=== PATIENT | female | born 1995 | race African-American/Black ===

== ENCOUNTER 2017-10-05 17:36 | Emergency (ER) | payer MEDICAID ==
[2017-10-05 17:42] VITALS: BP 114/71
[2017-10-05 18:52] LABS: Bilirubin,Urine NEG (Negative); Blood,Urine SM (Negative); Color,Urine Yellow (Yellow); Mucus,Urine FEW /HPF; Protein,Urine <15 mg/dL mg/dL (Negative); Urobilinogen,Urine < 2.0 mg/dL (<2.0)
--- NOTE | 2017-10-05 19:08 | Emergency Department Report ---
ED Female HPI - General Chief complaint: Vaginal Bleeding Stated complaint: /NO HEART BEAT Time Seen by Provider: 10/05/17 18:59 Source: patient Mode of arrival: Ambulatory Limitations: No Limitations - History of Present Illness Initial comments: 22F past medical history none currently last menstrual period July 2017 presents with complaint of active vaginal spotting since Monday. Patient denies fevers chills nausea or vomiting. States she went to an [facility] called [facility] and had ultrasound which showed no heartbeat. Patient was advised to follow up with [facility]. Patient presents to the ED for complaint of crampy pain and bleeding. Denies any severe pain. Denies dysuria or increased urinary frequency. MD Complaint: vaginal bleeding Onset/Timin -: days(s) Radiation: suprapubic Severity: moderate Quality: cramping Consistency: intermittent Improves with: none Worsens with: none Are you Now?: Yes Last Menstrual Period: 08/29/17 EDC: 06/05/18 Associated Symptoms: vaginal bleeding, abdominal pain - Related Data Sexually active: Yes : 4 Para: 3 Home Medications Medication Instructions Recorded Confirmed Last Taken Pnv95/Ferrous Fumarate/FA 1 each PO QDAY 06/14/13 08/29/13 08/28/13 07:00 [ Vitamins] Previous Rx's Medication Instructions Recorded Last Taken Type metroNIDAZOLE [Metronidazole] 500 mg PO BID #14 tablet 10/05/17 Unknown Rx Allergies Allergy/AdvReac Type Severity Reaction Status Date / Time No Known Allergies Allergy Verified 06/14/13 10:51 ED Review of Systems ROS: Stated complaint: /NO HEART BEAT Other details as noted in HPI Constitutional: denies: chills, fever Eyes: denies: eye pain, eye discharge, vision change ENT: denies: ear pain, throat pain Respiratory: denies: cough, shortness of breath, wheezing Cardiovascular: denies: chest pain, palpitations Endocrine: no symptoms reported Gastrointestinal: abdominal pain. denies: nausea, diarrhea Genitourinary: as per HPI, abnormal menses. denies: urgency, dysuria, discharge Musculoskeletal: denies: back pain, joint swelling, arthralgia Skin: denies: rash, lesions Neurological: denies: headache, weakness, paresthesias Psychiatric: denies: anxiety, depression Hematological/Lymphatic: denies: easy bleeding, easy bruising ED Past Medical Hx - Past Medical History Previous Medical History?: No Hx Hypertension: No Hx Heart Attack/AMI: No Hx Congestive Heart Failure: No Hx Diabetes: No Hx Deep Vein Thrombosis: No Hx Pulmonary Embolism: No Hx Liver Disease: No Hx Renal Disease: No Hx Sickle Cell Disease: No Hx Headaches / Migraines: No Hx Seizures: No Hx Asthma: No Hx COPD: No Hx Tuberculosis: No Hx HIV: No - Surgical History Past Surgical History?: Yes Additional Surgical History: x 1 - Social History Smoking Status: Never Smoker Substance Use Type: None - Medications Home Medications: Home Medications Medication Instructions Recorded Confirmed Last Taken Type Pnv95/Ferrous Fumarate/FA 1 each PO QDAY 06/14/13 08/29/13 08/28/13 07:00 History [ Vitamins] metroNIDAZOLE [Metronidazole] 500 mg PO BID #14 tablet 10/05/17 Unknown Rx ED Physical Exam - General Limitations: No Limitations General appearance: alert, in no apparent distress - Head Head exam: Present: atraumatic, normocephalic - Eye Eye exam: Present: normal appearance, PERRL, EOMI - ENT ENT exam: Present: mucous membranes moist - Neck Neck exam: Present: normal inspection - Respiratory Respiratory exam: Present: normal lung sounds bilaterally. Absent: respiratory distress - Cardiovascular Cardiovascular Exam: Present: regular rate, normal rhythm. Absent: systolic murmur, diastolic murmur, rubs, gallop - GI/Abdominal GI/Abdominal exam: Present: soft, normal bowel sounds - Extremities Exam Extremities exam: Present: normal inspection - Back Exam Back exam: Present: normal inspection - Neurological Exam Neurological exam: Present: alert, oriented X3 - Psychiatric Psychiatric exam: Present: normal affect, normal mood - Skin Skin exam: Present: warm, dry, intact, normal color. Absent: rash ED Course Vital Signs 10/05/17 17:38 Temperature 97.7 F Pulse Rate 92 H Respiratory 18 Rate Blood Pressure 114/71 O2 Sat by Pulse 96 Oximetry ED Medical Decision Making - Lab Data Result diagrams: 10/05/17 17:51 10/05/17 19:22 - Medical Decision Making A/P: demise, bacterial vaginosis, miscarriage 1-ultrasound and clinical history consistent with demise. Approximate gestational age 8 weeks by ultrasound 2-I discussed case with on-call [facility] Dr. Lorenzo Ash. As per my discussion with Dr. Ash patient can be offered D&C or Cytotec. Patient to follow-up in office as soon as possible. I provided her with follow-up information and urged her to go [facility] for follow-up and further management. Patient stated she understood my instructions and said she will do so. Her partner at bedside for this discussion 3-urinalysis unremarkable. Positive clue cells on wet prep we'll treat empirically with course of metronidazole Critical care attestation.: If time is entered above; I have spent that time in minutes in the direct care of this critically ill patient, excluding procedure time. ED Disposition Clinical Impression: Bacterial vaginosis, demise, Miscarriage Disposition: - TO HOME OR SELFCARE Is pt being admited?: No Does the pt Need Aspirin: No Condition: Stable Instructions: Bacterial Vaginosis (ED), Spontaneous Miscarriage (ED), Intrauterine Demise (ED) Prescriptions: metroNIDAZOLE [Metronidazole] 500 mg PO BID #14 tablet Referrals: PRIMARY CAREMD [Primary Care Provider] - 3-5 Days LORENZO ASH MD [Staff Physician] - 3-5 Days Forms: Accompanied Note, Work/School Release Form(ED) Time of Disposition: 21:39
[2017-10-05 19:48] LABS: Hematocrit 41.9 % (30.3-42.9); Hemoglobin 13.7 gm/dl (10.1-14.3); Mean Corpuscular HGB Conc 33 % (30-34); Mean Corpuscular Hemoglobin 25 pg (28-32); Mean Corpuscular Volume 77 fl (79-97); Platelet Count 292 K/mm3 (140-440); Red Blood Count 5.42 M/mm3 (3.65-5.03); Red Cell Distribution Width 15.4 % (13.2-15.2)
[2017-10-05 20:21] LABS: Basophils % (Manual) 0 % (0.0-1.8); Hypochromasia 1+; RBC Morphology Normal; Total Cells Counted 100
--- NOTE | 2017-10-05 20:47 | Ultrasound Report ---
FINAL REPORT PROCEDURE: US OB < = 14 WEEKS FETUS TECHNIQUE: Real-time transabdominal sonography of the uterus, placenta, amniotic fluid, adnexa, and fetus was performed with image documentation. Measurements were obtained to determine age/size. M-mode Doppler was used to document heartbeat. CPT 62035 HISTORY: vaginal bleeding and abd pain COMPARISON: No prior studies are available for comparison. FINDINGS: There is single intrauterine fluid filled sac measuring about 4.1 centimeters in diameter corresponding to 9 weeks and 4 days of gestational age. A pole is visualized with a CR L measurement of 1.3 centimeters corresponding to 7 weeks and 4 days of gestational age. There is no evidence of any cardiac activity. There is no evidence of any subchorionic hemorrhage. Bilateral ovaries are normal in size and appearance. There is no evidence of any free fluid in the pelvic cavity. IMPRESSION: Findings are consistent with intrauterine gestation failure. It corresponds to a mean gestational age of 8 weeks and 4 days.
--- NOTE | 2017-10-05 20:49 | Ultrasound Report ---
FINAL REPORT PROCEDURE: US OB TRANSVAGINAL TECHNIQUE: Real-time transvaginal sonography of the uterus, placenta, amniotic fluid, adnexa, and fetus was performed with image documentation. Measurements were obtained to determine age/size. M-mode Doppler was used to document heartbeat. CPT 68158 HISTORY: vaginal bleeding and abd pain COMPARISON: No prior studies are available for comparison. FINDINGS: There is single intrauterine fluid filled sac measuring about 4.1 centimeters in diameter corresponding to 9 weeks and 4 days of gestational age. A pole is visualized with a CR L measurement of 1.3 centimeters corresponding to 7 weeks and 4 days of gestational age. There is no evidence of any cardiac activity. There is no evidence of any subchorionic hemorrhage. Bilateral ovaries are normal in size and appearance. There is no evidence of any free fluid in the pelvic cavity. IMPRESSION: Findings are consistent with intrauterine gestation failure. It corresponds to a mean gestational age of 8 weeks and 4 days.
[2017-10-05 20:53] LABS: BUN/Creatinine Ratio 22; Blood Urea Nitrogen 13 mg/dL (7-17); Calcium 9.2 mg/dL (8.4-10.2); Hemolysis Index 4
== END 2017-10-05 21:46 | disposition home or self-care (01) ==
LOC: ED 17:36
DX: O03.9 Complete or unspecified spontaneous abortion without complication (principal); O23.591 Infection of other part of genital tract in pregnancy, first trimester; N76.0 Acute vaginitis; Z3A.08 8 weeks gestation of pregnancy
CPT/HCPCS: 36415; 76801; 76817; 80048; 81001; 84702; 85007; 85025; 86850; 86900; 86901; 87210; 87591